=== PATIENT | female | born 1990 | race Caucasian/White ===

== ENCOUNTER 2017-11-22 15:30 | Emergency (ER) | END 2017-11-22 17:57 | disposition home or self-care (01) ==

== ENCOUNTER 2018-06-07 10:17 | Day surgery (SDC) | payer OTHER ==
[2018-06-06 14:14] VITALS: BMI 28.5
[~2018-06-07] VITALS: Ht 160 cm; Wt 71.6 kg
[2018-06-07] VITALS (9 sets, daily range): BP systolic 90–114; BP diastolic 60–76; PULSE 52–62; RESP 16–26; Ht 160 cm; Wt 71.6 kg
[~2018-06-07 10:17] MED LIST: ACET500C5 PO; DENIES; NAPR-985 PO; PRED20TA PO
[2018-06-07] MEDS ORDERED: BUPIVACAINE 0.5% (SDV) 30 ML INJ ONE (11:25)
[2018-06-07] MEDS ORDERED: LIDOCAINE 2% (MDV) 20 ML INJ ONE (11:25)
[2018-06-07] MEDS ORDERED: DEXAMETHASONE 4 MG/ML 1 ML INJ ONE (11:26)
[2018-06-07] MEDS ORDERED: POLYMYXIN/BACITRACIN 1L IRRIG ONE (11:28)
--- NOTE | 2018-06-07 12:27 | HPN ---
Date/Time of Note Date/Time of Note DATE: 06/07/18 TIME: 12:27 Interval H&P Admission Note Pt. seen H&P reviewed: No system changes NIRMALA RICARDO DPM Jun 07, 2018 12:27
--- NOTE | 2018-06-07 12:37 | PREAC ---
Date/Time of Note Date/Time of Note DATE: 06/07/18 TIME: 12:34 Anesthesia Eval and Record Evaluation Time Pre-Procedure Interview DATE: 06/07/18 TIME: 12:34 Age 27 Sex female NPO: 8 hrs Preoperative diagnosis left bunion pain Planned procedure ;eft foot bunionectomy with osteotomy left first metatarsal Past Medical History Past Medical History: Includes Pulm: Asthma Surgery & Anesthesia Issues No known issue Meds Anticoagulation: No Beta Marion within 24 hr: No Reason Beta Amrion not given: Pt. not on B-Marion Discontinued Reported Medications [Denies] No Conflict Check 12/07/09 Discontinued Scripts Acetaminophen* (Tylophen*) 500 Mg Capsule, 1 CAP PO Q6H PRN for PAIN AND OR ELEVATED TEMP, #30 CAP Prov:FAITH MILLER PA-C 11/22/17 Naproxen* (Naprosyn*) 500 Mg Tablet, 500 MG PO BID PRN for PAIN AND/OR INFLAMMATION, #30 TAB Prov:FAITH MILLER PA-C 11/22/17 Prednisone* (Prednisone*) 20 Mg Tab, 40 MG PO DAILY for 4 Days, TAB Prov:TAMIKA CLARKE PA-C 08/01/15 Naproxen* (Naprosyn*) 500 Mg Tablet, 500 MG PO BID PRN for PAIN AND/OR INFLAMMATION, #30 TAB Prov:TAMIKA CLARKE PA-C 08/01/15 Meds reviewed: Yes Allergies Coded Allergies: No Known Drug Allergy (Verified Allergy, Unknown, 06/07/18) Allergies Reviewed: Yes Labs/Studies Labs Reviewed: Reviewed by anesthesiologist test: Negative Pre-procedure Exam Last vitals Vital Signs Date Temp Pulse Resp B/P (MAP) Pulse Ox O2 O2 Flow FiO2 Time Delivery Rate 06/07/18 98.1 62 16 105/66 97 11:07 (79) Airway: Adequate mouth opening, Adequate thyromental dist Mallampati: Mallampati II Teeth: Normal (retainer removed) Lung: Normal Heart: Normal ASA Physical Status ASA physical status: 2 Emergency: None Planned Anesthetic General/MAC: MAC Pre-operative Attestations Prior to commencing anesthesia and surgery, the patient was re-evaluated, there was verification of: *The patient's identity *The results of appropriate recent lab work and preoperative vital signs *The above evaluation not changing prior to induction *Anesthetic plan, risk benefits, alternative and complications discussed with patient/family; questions answered; patient/family understands, accepts and wishes to proceed. ASHLEY ENCINAS CRNA Jun 07, 2018 12:37
[2018-06-07] MEDS ORDERED: FENTAnyl 50 MCG/ML VIAL ONE (12:40)
[2018-06-07] MEDS ORDERED: PROPOFOL 20 ML ONE ×3 (12:40→13:26)
[2018-06-07] MEDS ORDERED: MIDAZOLAM 1 MG/ML 2 ML INJ ONE (12:40)
[2018-06-07] MEDS ORDERED: LIDOCAINE 2% (SDV) 5 ML INJ ONE (12:40)
[2018-06-07] MEDS ORDERED: PROPOFOL 40 ML ONE (13:00)
[2018-06-07] MEDS ORDERED: CEFAZOLIN 1 GM INJ ONE (13:00)
[2018-06-07] MEDS ORDERED: KETOROLAC 30 MG INJ ONE (13:47)
--- NOTE | 2018-06-07 13:55 | SIPON ---
Date/Time of Note Date/Time of Note DATE: 06/07/18 TIME: 13:53 Operative Report Preoperative Diagnosis painful bunion deformity left foot Postoperative Diagnosis painful bunion deformity left foot. Operation/Procedure Performed bunionectomy with osteotomy left foot. mi osteotomy left hallux Surgeon see signature line assistant technician none Anesthesia: general, MAC Estimated blood loss: none Transfusion Required none Specimen none Grafts/Implants none Complications none NIRMALA RICARDO DPM Jun 07, 2018 13:55
--- NOTE | 2018-06-07 14:07 | PAC ---
Date/Time of Note Date/Time of Note DATE: 06/07/18 TIME: 14:05 Post-Anesthesia Notes Post-Anesthesia Note Last documented vital signs Vital Signs Date Temp Pulse Resp B/P (MAP) Pulse Ox O2 O2 Flow FiO2 Time Delivery Rate 06/07/18 98.1 62 16 105/66 97 11:07 (79) Activity: WNL Respiratory function: WNL Cardiovascular function: WNL Mental status: Baseline Pain reasonably controlled: Yes Hydration appropriate: Yes Nausea/Vomiting absent: Yes Comments bp 90/60 sp02 96% hr 64 temp 98F rr 12 ASHLEY ENCINAS CRNA Jun 07, 2018 14:07
[2018-06-07] MEDS ORDERED: FENTAnyl 50 MCG/ML VIAL IV PRN (14:30)
[2018-06-07] MEDS ORDERED: OXYCODONE/ACETAMINOPHEN (5/325) TAB PO PRN (14:30)
[2018-06-07] MEDS ORDERED: MEPERIDINE 25 MG INJ IV PRN (14:30)
[2018-06-07] MEDS ORDERED: HYDROmorphONE 1 MG/5 ML IV SYRINGE IV PRN ×3 (14:30)
[2018-06-07] MEDS ORDERED: ONDANSETRON 4 MG INJ IV PRN (14:30)
--- NOTE | 2018-06-07 21:27 | OPR ---
DATE OF OPERATION: 06/07/2018 SURGEON: Doug Abad DPM. ANESTHESIOLOGIST: Elizabeth Brewer. PREOPERATIVE DIAGNOSIS: Painful bunion with hallux valgus, left foot. POSTOPERATIVE DIAGNOSIS: Painful bunion with hallux valgus, left foot. OPERATION PERFORMED: 1. Bunionectomy with osteotomy, left 1st metatarsal. 2. Ben osteotomy, left hallux. DESCRIPTION OF PROCEDURE: The patient was brought into the operating room and placed on the table in supine position. Cardiac morning, IV sedation, and an ankle pneumatic tourniquet were utilized for this case. Preoperatively, a total of 18 cc of 0.5 percent Marcaine plain mixed with 2 percent lidocaine plain were into the left foot in the form of a Garsia block. Upon achieving anesthesia, the left foot and leg were prepped and draped in the usual sterile manner. The ankle pneumatic tourniquet was inflated to 250 mmHg. 1. Bunionectomy with osteotomy left 1st metatarsal. A 4 cm dorsomedial incision was performed along the metatarsophalangeal joint of the left foot. The incision was deepened. Superficial bleeders were cauterized and bovied as necessary. Next, a linear capsulotomy was performed. The capsule was reflected dorsally and plantarly exposing the hypertrophic medial eminence. The hypertrophic medial eminence of the 1st metatarsal was resected with a power sagittal saw. Next, the Trinh wire was inserted from medial to lateral serving as an axis guide. A Chevron osteotomy was made with a long dorsal arm to allow for the correction of the metatarsal primus varus angle. A Chevron through and through osteotomy was performed at 60 degree angles and 1.5 cm proximal to the metatarsophalangeal joint. The osteotomy was performed and the capital fragment was translocated laterally 3 mm and fixated with an 18.3 mm cannulated screw and 17 by 3.0 mm cannulated screw. The osteotomy was stable with fixation. The remaining bone was resected flush with the 1st metatarsal with a power sagittal saw and rasped smooth. No sharp edges were left behind. Next, the incision was extended distally 2 cm 2. Ben osteotomy, left hallux. The incision was deepened. The periosteum was reflected off the base of the proximal phalanx. An osteotomy was performed from medial to lateral, leaving the lateral cortex intact. A 2nd osteotomy was performed proximal to the distal osteotomy 2 mm apart. The wedge of bone was removed. The lateral apex was feathered. The osteotomy was then closed and fixated with a 10 mm easy clip staple. Next, the surgical site was irrigated with sterile saline mixed with bacitracin solution. The capsule was closed with 2-0 Vicryl simple interrupted sutures. The subcutaneous tissue was closed with 4-0 Vicryl simple interrupted sutures. The skin edges were reapproximated with a running 3-0 Prolene subcuticular stitch. Dressing consisted of quarter-inch Steri-Strips, tincture benzoin, 4 by 4 gauze, Xeroform gauze, 4 inch Kerlix roll, and 2 inch Coban to semicompressive dressing. Immediate hyperemia was noted to all digits of the left foot upon deflating the ankle tourniquet. No intraoperative complication were encountered. The patient tolerated the above procedure well and left the OR with vital signs stable and satisfactory. The patient will follow up 1 week postop. Dictated By: Aleksandr Abad DPM /nacho/claudio /Document#: [id number]
== END 2018-06-07 16:30 | disposition home or self-care (01) ==
LOC: SDS 10:17
PROVIDERS: ATTEND Podiatrist Primary Podiatric Medicine
DX: M20.12 Hallux valgus (acquired), left foot (principal); M21.612 Bunion of left foot
CPT/HCPCS: 28299; 73620; 73630; 84703; C1713; J0690; J1885; J2250; J3010; Z7512; Z7610; J1100